=== PATIENT | male | born 1945 ===

== ENCOUNTER 2018-07-25 13:51 | Day surgery (SDC) | payer OTHER, MEDICARE ==
[2018-07-25] MEDS ORDERED: Iodixanol 320 MG/ML 200 ML BOTTLE IV ONE (16:33)
[2018-07-25] MEDS ORDERED: Iodixanol 320 MG/ML 100 ML BOTTLE IV ONE (16:33)
[2018-07-25] MEDS ORDERED: Lidocaine PF 2% (5 ml) Inj (For Cardiac Arrhy) ONE (16:33)
[2018-07-25] MEDS ORDERED: Midazolam 2 MG/2 ML VIAL ONE ×2 (16:59→17:10)
[2018-07-25 18:51] VITALS: BMI 24.2
[2018-07-25] MEDS ORDERED: Oxycodone/Acetaminophen 5/325 mg Tab PO PRN (18:54)
[2018-07-25] MEDS ORDERED: Sodium Chloride 0.9% 1,000 ML IV SCH (19:00)
[2018-07-25] MEDS ORDERED: Insulin Regular 1 UNITS/0.01 ML ML SC SCH ×3 (22:00→22:48)
--- NOTE | 2018-07-25 22:57 | CARDCATH ---
PROCEDURE DATE: 07/25/2018 INDICATIONS: This is a 73-year-old male with history of dementia, hypertension, diabetes, and hyperlipidemia, who presented to [facility] after having a syncopal episode. The patient underwent a nuclear stress test and echocardiogram, which showed moderate aortic stenosis. Stress test was somewhat equivocal. He was brought to the [facility] for further evaluation and treatment for moderate and etiology for syncope. PROCEDURES PERFORMED: Complete heart catheterization with selective left and right coronary angiogram, right heat catheterization with hemodynamics and cardiac output using the thermodilution method. Right heart catheterization findings: RA mean 3 mmHg. RV EDP is 6. RV systolic 34/-5. PA pressure 19/6 with a mean of 11. Pulmonary capillary wedge pressure mean was 5 mmHg. Using the thermodilution method, cardiac output was calculated to be 4.4 L and cardiac index was 2.48. Subsequently, left heart catheterization was performed with simultaneous [id number] evaluation of his LV and AO pressures. The mean gradient across the aortic valve was 27 mmHg with a calculated aortic valve area of 0.83 cm2. CORONARY ANATOMY: Left main is a large sized vessel, it bifurcates into left anterior descending and left circumflex coronary artery. The mid left main has 40% stenosis, LAD proximal high grade 95% stenosis, mid LAD long diffuse 80% lesion, gives off to small diagonal branch and left circumflex runs in AV groove, had mid 55% stenosis and gives off obtuse marginal branch with [id number] obstructive disease. RCA is a large-sized vessel, gives off right PDA. PDA has multiple tandem 90% lesions. IMPRESSION: 1. Severe multivessel coronary artery disease. 2. Moderately severe aortic stenosis. RECOMMENDATIONS: The patient is to be transferred over to [place] for further evaluation and management. The patient is to undergo a consultation with CT surgery and decide for further intervention of minimal invasive versus traditional CABG, valve versus PCI with TAVR. Sudhakar Ohara MD
[2018-07-25 23:38] VITALS: PULSE 70
[2018-07-25 23:48] VITALS: RESP 18
[2018-07-25 23:49] VITALS: BP 111/65; TEMP 98.2
[2018-07-26] MEDS ORDERED: Insulin Regular 1 UNITS/0.01 ML ML SC SCH (07:30)
== END 2018-07-26 00:59 | disposition short-term general hospital (02) ==
LOC: CATH 13:51 → 2RSO 18:11 → CATH 07-26 00:59
PROVIDERS: ATTEND Internal Medicine Interventional Cardiology
DX: I25.10 Atherosclerotic heart disease of native coronary artery without angina pectoris (principal); I35.0 Nonrheumatic aortic (valve) stenosis; I10 Essential (primary) hypertension; R55 Syncope and collapse; F03.90 Unspecified dementia, unspecified severity, without behavioral disturbance, psychotic disturbance, mood disturbance, and anxiety; E11.9 Type 2 diabetes mellitus without complications; E78.5 Hyperlipidemia, unspecified
CPT/HCPCS: 82948; 93460; 99152; C1769 ×2; C1894 ×2; J1644; J2250; J3010; Q9966; Q9967